=== PATIENT | female | born 1985 | race African-American/Black ===

== ENCOUNTER 2016-10-12 03:55 | Inpatient (IN) | payer OTHER ==
[~2016-10-12] VITALS: Ht 154.9 cm; Wt 63.6 kg
[2016-10-12] VITALS (29 sets, daily range): BP systolic 89–151; BP diastolic 54–78
[2016-10-12 05:36] LABS: EOSINOPHIL (%) 0.3 % (0-5); HEMATOCRIT 32.9 % (36.0-46.0); IMMATURE GRANULOCYTE (%) 1.2 % (0.0-0.7); IMMATURE GRANULOCYTE COUNT 0.1 K/uL; INSTRUMENT ABS NEUTROPHIL CT 9.2 K/uL; LYMPHOCYTE COUNT 1.3 K/uL (1.0-2.8); MCH 28.2 PG (29.0-34.0); MCHC 34.3 G/DL (30.0-36.0); MEAN PLAT.VOLUME 10.8 uM^3 (9.5-12.4); MONOCYTE COUNT 0.6 K/uL (0-0.8); NEUTROPHIL (%) 81.9 % (45-76); NEUTROPHIL COUNT 9.2 K/uL (1.8-6.4); PLATELET COUNT 169 K/uL (156-360); RBC DIS.WIDTH-CV 12.8 % (11.8-14.6); RBC DIS.WIDTH-SD 38.1 % (39-53); RED BLOOD COUNT 4.01 M/uL (3.80-5.20); WHITE BLOOD COUNT 11.2 K/uL (4.1-10.2)
[2016-10-12] MEDS ORDERED: IBUPROFEN800 MG PO (13:11)
[2016-10-12] MEDS ORDERED: ENDOCET 5-3251 EACH PO (13:11)
[2016-10-13 07:09] VITALS: BP 112/56
[2016-10-13 15:15] VITALS: BP 133/66
== END 2016-10-13 17:54 | disposition home or self-care (01) | DRG 775 ==
LOC: LDRP-OP 03:55 → 2WEST 03:56 → LDRP-OP 11-07 16:27
PROVIDERS: Nurse Practitioner
PROC: 10E0XZZ Delivery of Products of Conception, External Approach (ICD-10-PCS; principal; 2016-10-12)
PROC: 0KQM0ZZ Repair Perineum Muscle, Open Approach (ICD-10-PCS; principal; 2016-10-12)
PROC: 3E0R3CZ (ICD-10-PCS; principal; 2016-10-12)
PROC: 00HU33Z Insertion of Infusion Device into Spinal Canal, Percutaneous Approach (ICD-10-PCS; principal; 2016-10-12)
DX: O76 Abnormality in fetal heart rate and rhythm complicating labor and delivery (principal); O99.344 Other mental disorders complicating childbirth; O34.219 Maternal care for unspecified type scar from previous cesarean delivery; F42.9 Obsessive-compulsive disorder, unspecified; O70.1 Second degree perineal laceration during delivery; O99.02 Anemia complicating childbirth; D57.3 Sickle-cell trait; Z87.891 Personal history of nicotine dependence; Z3A.40 40 weeks gestation of pregnancy; Z37.0 Single live birth
CPT/HCPCS: 85025; 86900; 86901; C1755; J2795; J3010; J7120

== ENCOUNTER 2016-11-02 11:13 | Emergency (ER) | payer OTHER ==
[~2016-11-02] VITALS: Ht 154.9 cm; Wt 59.3 kg
[~2016-11-02 11:13] MED LIST: ENDOCET 5-3251 EACH PO; IBUPROFEN800 MG PO
[2016-11-02 12:40] LABS: BILIRUBIN NEGATIVE; BLOOD LARGE; COLOR RED ((YELLOW)); GLUCOSE (STRIP) NEGATIVE; KETONES NEGATIVE; SPECIFIC GRAVITY 1.009 (1.000-1.030)
[2016-11-02 12:41] LABS: ADD MIUA? YES; LEUKOCYTES SMALL; NITRITE NEGATIVE; PROTEIN (STRIP) >=300; RED BLOOD CELLS TNTC /HPF (0-5); UCUL ADDED? YES; UROBILINOGEN 0.2 MG/DL (0.2-1.0)
[2016-11-02 14:56] LABS: HEMATOCRIT 35.5 % (36.0-46.0); MCH 27.8 PG (29.0-34.0); MCHC 33.8 G/DL (30.0-36.0); MCV 82.2 FL (83-99); MEAN PLAT.VOLUME 9.4 uM^3 (9.5-12.4); PLATELET COUNT 365 K/uL (156-360); RBC DIS.WIDTH-CV 12.2 % (11.8-14.6); RBC DIS.WIDTH-SD 37.4 % (39-53); RED BLOOD COUNT 4.32 M/uL (3.80-5.20); WHITE BLOOD COUNT 6.4 K/uL (4.1-10.2)
[2016-11-02 15:04] LABS: CHLORIDE 106 mEq/L (99-109); POTASSIUM 3.9 mEq/L (3.7-5.4); SODIUM 137 mEq/L (136-147)
[2016-11-02 15:06] LABS: GLUCOSE 93 mg/dL (70-99)
[2016-11-02 15:07] LABS: ANION GAP 9 MEQ/L (2-14)
[2016-11-02 15:08] LABS: TOTAL BILIRUBIN 0.7 mg/dL (0.0-1.0)
[2016-11-02 15:09] LABS: ALKALINE PHOSPHATASE 110 IU/L (3-129)
[2016-11-02 15:10] LABS: GFR ESTIMATE (CALCULATED) > 59 mL/min/
[2016-11-02 15:11] LABS: UREA NITROGEN (BUN) 8 mg/dL (9-23)
[2016-11-02] MEDS ORDERED: MACROBID100 MG PO (16:29)
[2016-11-02 16:46] VITALS: BP 132/80
== END 2016-11-02 16:50 | disposition home or self-care (01) ==
LOC: EME 11:13
PROVIDERS: Nurse Practitioner Family
DX: O86.20 Urinary tract infection following delivery, unspecified (principal); O99.63 Diseases of the digestive system complicating the puerperium; K59.00 Constipation, unspecified
CPT/HCPCS: 74020; 80053; 81003; 85027; 87086; 99281; 99284; J7030

== ENCOUNTER 2016-11-10 07:21 | Emergency (ER) | payer OTHER ==
[~2016-11-10] VITALS: Ht 154.9 cm; Wt 55.6 kg
[~2016-11-10 07:21] MED LIST changes: +MACROBID100 MG PO
[2016-11-10] MEDS ORDERED: KEFLEX500 MG PO (08:34)
[2016-11-10 09:23] LABS: ADD MIUA? YES; BILIRUBIN NEGATIVE; GLUCOSE (STRIP) NEGATIVE; KETONES NEGATIVE; LEUKOCYTES NEGATIVE; NITRITE NEGATIVE; PROTEIN (STRIP) 100; SPECIFIC GRAVITY 1.012 (1.000-1.030); UROBILINOGEN 0.2 MG/DL (0.2-1.0)
[2016-11-10 09:29] LABS: BLOOD LARGE; COLOR RED ((YELLOW))
[2016-11-10 09:30] LABS: BACTERIA NONE SEEN /HPF; EPITHELIAL CELLS NONE SEEN /HPF; MUCUS NONE SEEN /LPF; RED BLOOD CELLS TNTC /HPF (0-5); UCUL ADDED? NO; WHITE BLOOD CELLS 0-5 /HPF (0-5)
[2016-11-10 09:31] LABS: CASTS NONE SEEN /LPF; CRYSTALS NONE SEEN
[2016-11-10 10:04] VITALS: BP 126/85
== END 2016-11-10 10:05 | disposition home or self-care (01) ==
LOC: EME 07:21
PROVIDERS: Emergency Medicine
DX: N12 Tubulo-interstitial nephritis, not specified as acute or chronic (principal)
CPT/HCPCS: 81003; 87086; 99281; 99283; J0692; J7050

== ENCOUNTER 2016-12-19 05:38 | Day surgery (SDC) | payer OTHER ==
[~2016-12-19] VITALS: Ht 154.9 cm; Wt 54.4 kg
[~2016-12-19 05:38] MED LIST changes: +KEFLEX500 MG PO
[2016-12-19 06:30] VITALS: BP 130/92
[2016-12-19 08:58] VITALS: BP 134/85
[2016-12-19 10:00] VITALS: BP 137/88
[2016-12-19 11:19] LABS: INTERNAL CONTROL VALID? YES
== END 2016-12-19 10:09 | disposition home or self-care (01) ==
LOC: SDC 05:38
PROVIDERS: Urology
DX: R31.0 Gross hematuria (principal); Z83.3 Family history of diabetes mellitus; Z82.49 Family history of ischemic heart disease and other diseases of the circulatory system
CPT/HCPCS: 84703; J0690; J2250; J2405; J3010